=== PATIENT | female | born 1955 | race Caucasian/White ===

== ENCOUNTER 2018-11-28 14:40 | Emergency (ER) | payer OTHER ==
[2018-11-28] MEDS: traMADol 50 MG Tab PO ONE (14:50)
[2018-11-28] MEDS: Midazolam 1 MG/ML 2 ML SDV ONE (15:27)
[2018-11-28] MEDS: fentaNYL 100 MCG/2 ML SDV ONE (15:27)
--- NOTE | 2018-11-28 16:40 | EDM.PDOC ---
ED HPI GENERAL MEDICAL PROBLEM - General Chief Complaint: Lower Extremity Injury/Pain Stated Complaint: L) ankle pain Time Seen by Provider: 11/28/18 15:10 Source of Information: Reports: Patient History Limitations: Reports: No Limitations - History of Present Illness INITIAL COMMENTS - FREE TEXT/NARRATIVE: Kath is a 63 year old female who presents to the ED via [facility] with c/ o left ankle pain. She reports she had just finished mowing lawn and was getting off a trailer. Reports she twisted her ankle and it got stuck. Had instant pain. Rates pain 8/10. Unable to bear weight. Swelling and obvious deformity to left ankle. 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 Left Ankle Pain Score (Numeric/FACES): 8 - Related Data Allergies Allergy/AdvReac Type Severity Reaction Status Date / Time No Known Allergies Allergy Verified 11/28/18 14:46 Home Meds: Home Meds Aspirin 325 mg PO DAILY 11/28/18 [History] Fish Oil/[place]-3 Fatty Acids [Fish Oil 1,000 MG] 1 gm PO BEDTIME 11/28/18 [ History] Hydrocodone/Acetaminophen [[place] 5-325 Tablet] 1 - 2 tab PO Q4HR PRN #30 tablet 11/28/18 [Rx] Magnesium 250 mg PO BEDTIME 11/28/18 [History] Rosuvastatin [Crestor] 10 mg PO BEDTIME 11/28/18 [History] Past Medical History Cardiovascular History: Reports: High Cholesterol - Past Surgical History GI Surgical History: Reports: Appendectomy Female Surgical History: Reports: Oophorectomy Social & Family History - Tobacco Use Smoking Status *Q: Never Smoker - Caffeine Use Caffeine Use: Reports: None - Recreational Drug Use Recreational Drug Use: No Review of Systems - Review of Systems Review Of Systems: ROS reveals no pertinent complaints other than HPI. ED EXAM, GENERAL - Physical Exam Exam: See Below Exam Limited By: No Limitations General Appearance: Alert, WD/WN, No Apparent Distress Peripheral Pulses: 2+: Posterior Tibial (L), Dorsalis Pedis (L) Extremities: Normal Capillary Refill, Joint Swelling (left ankle), Limited Range of Motion (left ankle), Other (obvious deformity noted to left ankle, cap refill < 2 seconds, able to move toes) Neurological: Alert, Oriented Course - Vital Signs Last Recorded V/S: Last Vital Signs Temp 97.9 F 11/28/18 14:43 Pulse 50 L 11/28/18 16:02 Resp 16 11/28/18 16:02 BP 142/78 H 11/28/18 15:54 Pulse Ox 97 11/28/18 16:02 - Orders/Labs/Meds Orders: Active Orders 24 hr Category Date Time Status Oxygen Therapy [RC] ASDIRECTED Care 11/28/18 15:25 Active Ankle 2V Lt [CR] Stat Exams 11/28/18 14:48 Taken Ankle 2V Lt [CR] Stat Exams 11/28/18 15:37 Taken Meds: Medications Discontinued Medications Generic Name Dose Route Start Last Admin Trade Name Filibertoq PRN Reason Stop Dose Admin Fentanyl Confirm 11/28/18 15:07 11/28/18 15:27 Sublimaze Administered 11/28/18 15:08 100 mcg Dose Administration 100 mcg .ROUTE .STK-MED ONE Midazolam HCl Confirm 11/28/18 15:07 11/28/18 15:27 Versed 1 Mg/Ml Administered 11/28/18 15:08 2 mg Dose Administration 2 mg .ROUTE .STK-MED ONE Tramadol HCl 50 mg 11/28/18 14:51 11/28/18 14:50 Ultram PO 11/28/18 14:52 50 mg ONETIME ONE Administration - Re-Assessments/Exams Free Text/Narrative Re-Assessment/Exam: Xrays show trimalleolar fracture with displacement and dislocation of ankle. Reviewed films with Dr. Varela. Dr. Varela evaluated. Conscious sedation administered. Ankle reduced with manual reduction per Dr. Varela. Monitored throughout. O2 sats did reduce to 90% following administration of fentanyl and versed. O2 applied and maintained sats throughout with O2. Post reduction films reveal improved alignment. One step splint placed. Patient tolerated well. Consulted with Dr. Salazar (orthopedics) who reviewed pre and post reduction films. Recommends follow up at 9 am at [facility]. Departure - Departure Time of Disposition: 16:33 Disposition: Home, Self-Care 01 Condition: Fair Clinical Impression: Trimalleolar fracture of left ankle Qualifiers: Encounter type: initial encounter Fracture type: closed Qualified Code(s): S82.852A - Displaced trimalleolar fracture of left lower leg, initial encounter for closed fracture Dislocation of ankle, left, closed Qualifiers: Encounter type: initial encounter Qualified Code(s): S93.05XA - Dislocation of left ankle joint, initial encounter - Discharge Information *PRESCRIPTION DRUG MONITORING PROGRAM REVIEWED*: No *COPY OF PRESCRIPTION DRUG MONITORING REPORT IN PATIENT SAEID: No Prescriptions: Hydrocodone/Acetaminophen [[place] 5-325 Tablet] 1 - 2 tab PO Q4HR PRN #30 tablet PRN Reason: Pain Instructions: Open Reduction of Displaced Trimalleolar Ankle Fracture, Care After Referrals: Kath Pitt PA-C [Primary Care Provider] - Forms: ED Department Discharge Additional Instructions: - Keep splint on until f/u with orthopedics - Nonweightbearing to left lower extremity. Use crutches when ambulatory. - Ice affected area - [place] 1-2 tablets every 4-6 hours as needed for pain - May use ibuprofen or Tylenol for less severe pain - Follow up with Dr. Salazar (orthopedics) at [facility] in [place], [place] 11/30/2018 at 9 am. Call tomorrow morning to ensure appointment time/ details. - Address [address] [place], [place] - Phone number for [facility] - My Orders Last 24 Hours: My Active Orders 11/28/18 14:48 Ankle 2V Lt [CR] Stat 11/28/18 15:25 Oxygen Therapy [RC] ASDIRECTED 11/28/18 15:37 Ankle 2V Lt [CR] Stat - Assessment/Plan Last 24 Hours: My Active Orders 11/28/18 14:48 Ankle 2V Lt [CR] Stat 11/28/18 15:25 Oxygen Therapy [RC] ASDIRECTED 11/28/18 15:37 Ankle 2V Lt [CR] Stat
--- NOTE | 2018-11-30 09:24 | OR ---
DATE OF OPERATION: 11/28/2018 Ms. Flores is a 63-year-old female, who was in the emergency room for an ankle fracture with posterior dislocation. Shawna Hurtado asked me to come and reduce. The patient was given conscious sedation with 50 mcg of fentanyl and 2 mg of Versed IV with continuous O2 saturation monitoring and nurse assist. Oxygen saturations remained about 90% for the entire procedure. Tibia was grasped anteriorly and stabilized. The patient's heel was grasped and posterior reduction was used and reduced with anterior force. The patient was immediately put into a one-step and postreduction films show excellent reduction and alignment. ANJELICA/RADU /[id number]
== END 2018-11-28 17:30 | disposition home or self-care (01) ==
LOC: SUPCPDRO 14:40 → CC.ED 14:40
DX: S82.852A Displaced trimalleolar fracture of left lower leg, initial encounter for closed fracture (principal); E78.00 Pure hypercholesterolemia, unspecified; Z79.899 Other long term (current) drug therapy; X50.1XXA Overexertion from prolonged static or awkward postures, initial encounter
CPT/HCPCS: 27818; 27840; 29515; 73600-LT; 94761; 96374; 96375; 99152; 99283-25; A9270-GY; J2250; J3010

== ENCOUNTER → 2020-10-03 | Day surgery (SDC) | payer BC ==
[~2020-10-03] MED LIST: Lactated Ringers 1,000 ML IV SCH
--- NOTE | 2020-10-03 14:43 | OR ---
DATE OF OPERATION: 10/03/2020 PREOPERATIVE DIAGNOSIS: SCREENING COLONOSCOPY. POSTOPERATIVE DIAGNOSIS: SCREENING COLONOSCOPY. SURGEON: Sridhar Varela MD PROCEDURE: FULL-LENGTH COLONOSCOPY WITH BIOPSIES X3. ANESTHESIA: MAC. COMPLICATIONS: None. SPECIMEN: Left-sided colon biopsies x3. FINDINGS: 1. Full-length colonoscopy. 2. Colitis from splenic flexure to proximal sigmoid colon, mild and nonspecific. RECOMMENDATIONS: Medical followup pending path reports. Routine colonoscopy every 10 years. INDICATIONS: The patient was seen by her primary. It has been 10 years since her last colonoscopy. Kath Pitt sent her for screening procedure. DESCRIPTION OF PROCEDURE: The patient was prepped and draped, placed in the left lateral decubitus position. A lubricated Olympus colonoscope was inserted and easily advanced to the cecum. Direct visualization of the ileocecal valve and appendiceal orifice was accomplished. The bowel prep was excellent. Upon withdrawal of the scope, the cecum, ascending and transverse colon were benign. Just past the splenic flexure extending from essentially the splenic flexure to the proximal sigmoid colon, the patient had some very mild and nonspecific but diffuse colitis. We did 3 separate biopsies of guest service representative areas. The rest of the sigmoid and rectosigmoid junction had no polyps, masses, ulceration, or bleeding sites. No vascular abnormalities or signs of colitis. She had no diverticula. The rectal vault was benign. Retroflexion of the scope in the rectum showed no anal lesions. Air was suctioned and the scope removed without complication. ANJELICA/RADU /[id number]
== END ==
LOC: CC.SDS 08:59
PROVIDERS: ATTEND Family Medicine
DX: Z12.11 Encounter for screening for malignant neoplasm of colon (principal); E78.00 Pure hypercholesterolemia, unspecified; Z88.8 Allergy status to other drugs, medicaments and biological substances; Z79.82 Long term (current) use of aspirin
CPT/HCPCS: J7120